=== PATIENT | male | born 1985 | race African-American/Black ===

== ENCOUNTER 2019-10-21 10:06 | Emergency (ER) | payer BC ==
[~2019-10-21] VITALS: Ht 175.3 cm; Wt 90.7 kg
[2019-10-21 10:10] VITALS: BP 117/74
--- NOTE | 2019-10-21 10:10 | NUR ---
ED Nurse Note: Pt walked in from home c/o cold/cough x 3 weeks. Pt reports intermittent vomiting and losing his voice. Pt denies travel or contact with others who have. Respirations even and unlabored on room air. Vitals stable as documented.
[2019-10-21] MEDS ORDERED: ALBUTEROL SULF8.5 GM INH (10:34)
[2019-10-21] MEDS ORDERED: MEDROL DOSEPAK4 MG ORAL (10:34)
--- NOTE | 2019-10-21 10:41 | Emergency Room Report ---
History of Present Illness General Chief Complaint: Upper Respiratory Illness Source: Patient Present Illness HPI 34-year-old male presents with cough. He has had a cough for approximately 1 month. He reports a dry cough. No fevers. Patient denies a history of asthma. Non-smoker. He has a history of HIV but is on medication. He states he has had some posttussive emesis Allergies: Coded Allergies: No Known Allergies (Unverified , 10/21/19) Patient History Past Medical History: see triage record Reviewed Nursing Documentation: PMH: Agreed; PSxH: Agreed Review of Systems All Other Systems: negative except mentioned in HPI Physical Exam Vital Signs Date Time Temp Pulse Resp B/P (MAP) Pulse Ox O2 Delivery O2 Flow Rate FiO2 10/21/19 10:08 97.9 69 15 117/74 (88) 97 Room Air Sp02 EP Interpretation: reviewed, normal General Appearance: well appearing, no apparent distress Head: normocephalic, atraumatic Eyes: bilateral eye PERRL, bilateral eye EOMI ENT: hearing grossly normal, uvula midline, moist mucus membranes, other - No exudates noted Neck: full range of motion, supple Respiratory: lungs clear, normal breath sounds, no rhonchi, no respiratory distress, no retraction, no wheezing Cardiovascular #1: normal peripheral pulses, regular rate, rhythm, no murmur Gastrointestinal: non tender, soft, non-distended, no guarding Neurologic: alert, oriented x3, no focal defects Skin: normal color, warm/dry Medical Decision Making Diagnostic Impression: Primary Impression: Bronchitis ER Course Differential diagnosis included but not limited to URI, bronchitis, less likely pneumonia, low suspicion for coronavirus. Patient was in no acute distress and nontoxic-appearing. No respiratory distress noted. Clear to auscultation. Due to patient's persistent cough I did prescribe Medrol Dosepak, albuterol as needed. Patient had no fever. And no travel history. No sick contacts. Patient instructed to follow-up with primary care doctor, and was given return precautions Last Vital Signs Date Time Temp Pulse Resp B/P (MAP) Pulse Ox O2 Delivery O2 Flow Rate FiO2 10/21/19 10:08 97.9 69 15 117/74 (88) 97 Room Air Disposition: HOME, SELF-CARE Condition: Stable Scripts Methylprednisolone (Methylprednisolone*) 4MG Dspk 4 MG ORAL DIRECTED for 6 Days, #21 EA 0 Refills use as directed Prov: Charles Peace M.D. 10/21/19 Albuterol Sulfate* (ALBUTEROL SULFATE MDI*) 8.5 Gm Hfa.aer.ad 2 PUFF INH Q4H PRN for cough/wheezing, #1 EA 0 Refills Prov: Charles Peace M.D. 10/21/19 Referrals: [facility] Patient Instructions: Upper Respiratory Infection, Adult Additional Instructions: Patient is instructed to follow-up with her primary care doctor, primary care clinic or [facility] in 1 to 2 days. Patient instructed to return for any worsening symptoms or concerns. Please note that the documentation in this note was used with [employer] dictation technology. Pleae be advised that this may lead to erroneous text due to misinterpretation by the dictation software Charles Peace M.D. Oct 21, 2019 10:41
[2019-10-21 10:42] VITALS: BP 122/71
--- NOTE | 2019-10-21 10:42 | NUR ---
ER DISCHARGE NOTE: Patient is cleared to be discharged per ERMD, pt is aox4, on room air, with stable vital signs as documented. pt was given dc and prescription instructions and was able to verbalize understanding. pt id band removed. pt is able to ambulate with steady gait. pt took all belongings.
== END 2019-10-21 10:42 | disposition home or self-care (01) ==
LOC: EMR 10:22
DX: J40 Bronchitis, not specified as acute or chronic (principal)
CPT/HCPCS: 99282